=== PATIENT | female | born 1955 | race Caucasian/White ===

== ENCOUNTER → 2017-02-17 | Outpatient (CLI) | payer OTHER ==
--- NOTE | 2017-02-21 10:45 | MM ---
Reason for exam: screening (asymptomatic). Last mammogram was performed 1 year ago. History: Patient is postmenopausal. Family history of breast cancer in mother at age 70 and breast cancer in maternal grandmother at age 50. Benign left US cyst aspiration of the left breast, January 29, 2010. Benign left US cyst aspiration of the left breast, December 27, 2007. Benign left US cyst aspiration of the left breast, June 21, 2007. Took hormonal contraceptives for 3 years beginning at age 23. Physical Findings: A clinical breast exam by your physician is recommended on an annual basis and results should be correlated with mammographic findings. MG Screening Mammo w CAD Bilateral CC and MLO view(s) were taken. Prior study comparison: February 17, 2016, bilateral MG screening mammo w CAD. February 12, 2015, bilateral MG screening mammo w CAD. There are scattered fibroglandular densities. Previous mammotome biopsy in the left breast. No significant changes when compared with prior studies. ASSESSMENT: Benign, BI-RAD 2 RECOMMENDATION: Routine screening mammogram of both breasts in 1 year.
== END | disposition home or self-care (01) ==
LOC: RADMAMWWP 09:25
PROVIDERS: ATTEND Obstetrics & Gynecology
DX: Z12.31 Encounter for screening mammogram for malignant neoplasm of breast (principal); Z80.3 Family history of malignant neoplasm of breast

== ENCOUNTER → 2018-02-23 | Outpatient (CLI) | payer BC ==
--- NOTE | 2018-03-02 11:07 | MM ---
Reason for exam: screening (asymptomatic). Last mammogram was performed 1 year ago. History: Patient is postmenopausal. Family history of breast cancer in mother at age 70 and breast cancer in maternal grandmother at age 50. Benign left US cyst aspiration of the left breast, January 29, 2010. Benign left US cyst aspiration of the left breast, December 27, 2007. Benign left US cyst aspiration of the left breast, June 21, 2007. Took hormonal contraceptives for 3 years beginning at age 23. MG Screening Mammo w CAD Bilateral CC and MLO view(s) were taken. Prior study comparison: February 17, 2017, bilateral MG screening mammo w CAD. February 17, 2016, bilateral MG screening mammo w CAD. February 12, 2015, bilateral MG screening mammo w CAD. The breast tissue is heterogeneously dense. This may lower the sensitivity of mammography. No suspicious abnormality. Left biopsy marker noted. No significant new finding since prior exams. ASSESSMENT: Negative, BI-RAD 1 RECOMMENDATION: Routine screening mammogram of both breasts in 1 year.
== END | disposition home or self-care (01) ==
LOC: RADMAMWWP 10:26
PROVIDERS: ATTEND Obstetrics & Gynecology
DX: Z12.31 Encounter for screening mammogram for malignant neoplasm of breast (principal)
CPT/HCPCS: 77067

== ENCOUNTER → 2019-03-05 | Outpatient (CLI) | payer BC ==
--- NOTE | 2019-03-07 09:10 | MM ---
Reason for exam: screening (asymptomatic). Last mammogram was performed 1 year ago. History: Patient is postmenopausal. Family history of breast cancer in mother at age 70 and breast cancer in maternal grandmother at age 50. Benign left US cyst aspiration of the left breast, January 29, 2010. Benign left US cyst aspiration of the left breast, December 27, 2007. Benign left US cyst aspiration of the left breast, June 21, 2007. Took hormonal contraceptives for 3 years beginning at age 23. Physical Findings: A clinical breast exam by your physician is recommended on an annual basis and results should be correlated with mammographic findings. MG Screening Mammo w CAD Bilateral CC and MLO view(s) were taken. Prior study comparison: February 23, 2018, bilateral MG screening mammo w CAD. February 17, 2017, bilateral MG screening mammo w CAD. There are scattered fibroglandular densities. Previous mammotome biopsy in the left breast. No significant changes when compared with prior studies. ASSESSMENT: Negative, BI-RAD 1 RECOMMENDATION: Routine screening mammogram of both breasts in 1 year.
== END | disposition home or self-care (01) ==
LOC: RADMAMWWP 09:08
PROVIDERS: ATTEND Obstetrics & Gynecology
DX: Z12.31 Encounter for screening mammogram for malignant neoplasm of breast (principal)
CPT/HCPCS: 77067

== ENCOUNTER 2019-05-03 10:05 | Day surgery (SDC) | payer BC ==
[2019-05-01 10:43] VITALS: BMI 30.6
[~2019-05-03 10:05] MED LIST: LACTATED RINGERS 1,000 ML IV SCH
[2019-05-03 10:26] VITALS: RESP 18; TEMP 97.8
[2019-05-03] MEDS ORDERED: LIDOCAINE 1% 20 ML VIAL (10MG/ML) FOR IV START INTRADERMA ONE (10:26)
[2019-05-03] MEDS ORDERED: LACTATED RINGERS 1,000 ML IV ONE (10:26)
[2019-05-03] MEDS ORDERED: MIDAZOLAM 2 MG/2 ML VIAL IVP ONE (10:30)
[2019-05-03] MEDS ORDERED: LIDOCAINE 1% INJ 10MG/ML (20 ML MDV) ONE (11:18)
[2019-05-03] MEDS ORDERED: PROPOFOL 10 MG/ML 20 ML VIAL IV ONE (11:18)
--- NOTE | 2019-05-03 11:30 | P.PCN ---
Date of Procedure: 05/03/19 Procedure(s) Performed: BRIEF HISTORY: Patient is a 63-year-old, pleasant, female, scheduled for an upper endoscopy as a part of evaluation of long-standing history of GERD and atypical chest pain. She is been on Protonix 40 mg daily and heartburn has completely resolved but she still continues to have some discomfort in the epigastric area and in the midsternal area.. PROCEDURE PERFORMED: Esophagogastroduodenoscopy with biopsy. PREOPERATIVE DIAGNOSIS: GERD/atypical chest pain. IV sedation per anesthesia. PROCEDURE: After informed consent was obtained, the patient was brought into the endoscopy unit. IV sedation was administered by Anesthesia under continuous monitoring. Initially the Olympus GIF-140 video endoscope was inserted into the mouth. Esophagus intubated without any difficulty. It was gradually advanced into the stomach and duodenum and carefully examined. The bulb and the second part of the duodenum appeared normal. The scope at this time was withdrawn to the stomach, adequately insufflated with air, and upon careful examination, mucosa of the antrum, had mild gastritis and biopsies were done from this area. The body, cardia and the fundus appeared normal. The scope was then withdrawn into the esophagus. The GE junction was located at 39 cm from the incisors. It was superficial erosions at the GE junction consistent with LA grade B reflux esophagitis. Rest of esophagus appeared normal, biopsies were done from the distal esophagus and the patient tolerated the procedure well. IMPRESSION: 1. 2 superficial erosions at the GE junction consistent with LA grade a\B reflux esophagitis. 2. Minimal antral gastritis. RECOMMENDATIONS: The findings of this examination were discussed with the patient as well his family. She was advised to increase the Protonix to 40 mg twice daily to be taken half hour before breakfast and dinner and follow antireflux measures. She was also advised to follow with the biopsy results.
[2019-05-03 11:52] VITALS: BP 118/81; PULSE 58
== END 2019-05-03 12:14 | disposition home or self-care (01) ==
LOC: ORWHC2ENDO 10:05
PROVIDERS: ATTEND Internal Medicine Gastroenterology
DX: K22.10 Ulcer of esophagus without bleeding (principal); I10 Essential (primary) hypertension; E78.5 Hyperlipidemia, unspecified; F32.9 Major depressive disorder, single episode, unspecified; Z79.891 Long term (current) use of opiate analgesic; Z79.899 Other long term (current) drug therapy; Z88.8 Allergy status to other drugs, medicaments and biological substances
CPT/HCPCS: 88305; 43239; J2250; J2001; J2704

== ENCOUNTER → 2019-06-29 | Outpatient (CLI) | payer BC ==
--- NOTE | 2019-07-02 12:37 | US ---
EXAMINATION TYPE: US liver DATE OF EXAM: 06/29/2019 COMPARISON: Outside MRI report dated May 28, 2019 CLINICAL HISTORY: K76.9,R93.6 LESION LIVER, ABN MRI RESULTS. EXAM MEASUREMENTS: Liver Length: 15.5 cm CBD: 0.6 cm Right Kidney: 9.5 x 4.0 x 4.7 cm Pancreas: Pancreatic tail and uncinate process are obscured by bowel gas. Visualized portions of the pancreas are unremarkable. Liver: In the right hepatic lobe there is a 0.7 x 0.8 x 0.5 cm anechoic cyst with increased through transmission. No additional hepatic lesions are seen. Gallbladder: wnl Evidence for sonographic Pike's sign: No CBD: wnl Right Kidney: wnl IMPRESSION: The liver demonstrates a solitary subcentimeter hepatic cyst that appears simple and debbie gn. Multiple subcentimeter T2 hyperintense lesions were seen on a prior outside lumbar spine MRI date d May 28, 2019. To evaluate for possible other cystic hepatic lesions CT or MR abdomen with cont rast could be considered.
== END | disposition home or self-care (01) ==
LOC: RADUSWWP 09:17
PROVIDERS: ATTEND Family Medicine
DX: K76.89 Other specified diseases of liver (principal)
CPT/HCPCS: 76705

== ENCOUNTER → 2020-05-01 | Outpatient (CLI) | payer BC ==
--- NOTE | 2020-05-01 12:23 | USB ---
Reason for exam: additional evaluation requested from abnormal screening. History: Patient is postmenopausal. Family history of breast cancer in mother at age 70 and breast cancer in maternal grandmother at age 50. Benign left US cyst aspiration of the left breast, January 29, 2010. Benign left US cyst aspiration of the left breast, December 27, 2007. Benign left US cyst aspiration of the left breast, June 21, 2007. Took hormonal contraceptives for 3 years beginning at age 23. Physical Findings: Nurse Summary: thickening right breast 6 o'clock area (nurse TM). US Breast Workup Limited RT Right limited breast ultrasound including focal area of concern, retroareolar and axilla demonstrates no cystic or solid lesion seen. These results were verbally communicated with the patient and result sheet given to the patient on 05/01/20. ASSESSMENT: Incomplete: need additional imaging evaluation, BI-RAD 0 RECOMMENDATION: Special view mammogram of the right breast.
--- NOTE | 2020-05-01 12:26 | MM ---
Reason for exam: additional evaluation requested from abnormal screening. Last mammogram was performed 1 month ago. History: Patient is postmenopausal. Family history of breast cancer in mother at age 70 and breast cancer in maternal grandmother at age 50. Benign left US cyst aspiration of the left breast, January 29, 2010. Benign left US cyst aspiration of the left breast, December 27, 2007. Benign left US cyst aspiration of the left breast, June 21, 2007. Took hormonal contraceptives for 3 years beginning at age 23. MG 3D Work Up W/Cad RT LM and spot compression MLO view(s) were taken of the right breast. Prior study comparison: April 10, 2020, bilateral MG 3d screening mammo w/cad. March 05, 2019, bilateral MG screening mammo w CAD. The breast tissue is heterogeneously dense. This may lower the sensitivity of mammography. Distortion not on compression, on ML. These results were verbally communicated with the patient and result sheet given to the patient on 05/01/20. ASSESSMENT: Probably benign, BI-RAD 3 RECOMMENDATION: Follow-up diagnostic mammogram of the right breast in 6 months. (3D)
== END | disposition home or self-care (01) ==
LOC: RADUSWWP 09:24
PROVIDERS: ATTEND Obstetrics & Gynecology
DX: R92.8 Other abnormal and inconclusive findings on diagnostic imaging of breast (principal)
CPT/HCPCS: 77061; 77065

== ENCOUNTER → 2020-11-20 | Outpatient (CLI) | payer BC ==
--- NOTE | 2020-11-20 13:45 | MM ---
Reason for exam: follow-up at short interval from prior study. Last mammogram was performed 7 months ago. History: Patient is postmenopausal. Family history of breast cancer in mother at age 70 and breast cancer in maternal grandmother at age 50. Benign left US cyst aspiration of the left breast, January 29, 2010. Benign left US cyst aspiration of the left breast, December 27, 2007. Benign left US cyst aspiration of the left breast, June 21, 2007. Took hormonal contraceptives for 3 years beginning at age 23. Physical Findings: Nurse did not find any significant physical abnormalities on exam. MG 3D Diag Mammo W/Cad RT CC and MLO view(s) were taken of the right breast. Prior study comparison: May 01, 2020, right breast MG 3d work up w/cad RT. April 10, 2020, bilateral MG 3d screening mammo w/cad. There are scattered fibroglandular densities. There are benign appearing round calcifications in the right breast. There is no discrete abnormality. These results were verbally communicated with the patient and result sheet given to the patient on 11/20/20. ASSESSMENT: Benign, BI-RAD 2 RECOMMENDATION: Return to routine screening mammogram schedule for both breasts. Back on schedule.
== END | disposition home or self-care (01) ==
LOC: RADMAMWWP 10:45
PROVIDERS: ATTEND Family Medicine
DX: R92.1 Mammographic calcification found on diagnostic imaging of breast (principal); Z78.0 Asymptomatic menopausal state; Z80.3 Family history of malignant neoplasm of breast
CPT/HCPCS: 77061; 77065

== ENCOUNTER → 2021-04-24 | Outpatient (CLI) | payer MEDICARE ==
--- NOTE | 2021-04-28 11:08 | MM ---
Reason for exam: screening (asymptomatic). Last mammogram was performed 5 months ago. History: Patient is postmenopausal. Family history of breast cancer in mother at age 70 and breast cancer in maternal grandmother at age 50. Benign left US cyst aspiration of the left breast, January 29, 2010. Benign left US cyst aspiration of the left breast, December 27, 2007. Benign left US cyst aspiration of the left breast, June 21, 2007. Took hormonal contraceptives for 3 years beginning at age 23. Physical Findings: A clinical breast exam by your physician is recommended on an annual basis and results should be correlated with mammographic findings. MG 3D Screening Mammo W/Cad Bilateral CC and MLO view(s) were taken. Prior study comparison: November 20, 2020, right breast MG 3d diag mammo w/cad RT. April 10, 2020, bilateral MG 3d screening mammo w/cad. March 05, 2019, bilateral MG screening mammo w CAD. There are scattered fibroglandular densities. Previous mammotome biopsy in the left breast. No significant changes when compared with prior studies. ASSESSMENT: Benign, BI-RAD 2 RECOMMENDATION: Routine screening mammogram of both breasts in 1 year.
== END | disposition home or self-care (01) ==
LOC: RADMAMWWP 11:08
PROVIDERS: ATTEND Obstetrics & Gynecology
DX: Z12.31 Encounter for screening mammogram for malignant neoplasm of breast (principal)
CPT/HCPCS: 77063; 77067

== ENCOUNTER → 2022-04-26 | Outpatient (CLI) | payer MEDICARE ==
--- NOTE | 2022-04-27 14:59 | MM ---
Reason for Exam: Screening (asymptomatic). Last screening mammogram was performed 12 month(s) ago. Patient History: Menarche at age 13. First Full-Term at age 25. Postmenopausal. Hormonal Contraceptives for 3 years from age 23 until age 26. 01/29/2010, Benign Cyst Aspiration on the left side. 12/27/2007, Benign Cyst Aspiration on the left side. 06/21/2007, Benign Cyst Aspiration on the left side. Maternal grandmother had breast cancer, age 50. Mother had breast cancer, age 70. Risk Values: Paloma 5 year model risk: 3.2%. NCI Lifetime model risk: 11.7%. Prior Study Comparison: 05/01/2020 Right Diagnostic Mammogram, [facility]. 11/20/2020 Right Diagnostic Mammogram, [facility]. 04/24/2021 Bilateral Screening Mammogram, [facility]. Tissue Density: There are scattered fibroglandular densities. Findings: Analyzed By CAD. There is no suspicious group of microcalcifications or new suspicious mass in either breast. Overall Assessment: Benign, BI-RAD 2 Management: Screening Mammogram of both breasts in 1 year. A clinical breast exam by your physician is recommended on an annual basis and results should be correlated with mammographic findings. Electronically signed and approved by: Riley Miranda M.D. Radiologis
== END | disposition home or self-care (01) ==
LOC: RADMAMWWP 09:54
PROVIDERS: ATTEND Obstetrics & Gynecology
DX: Z12.31 Encounter for screening mammogram for malignant neoplasm of breast (principal); Z80.3 Family history of malignant neoplasm of breast
CPT/HCPCS: 77063; 77067

== ENCOUNTER → 2022-05-27 | Outpatient (CLI) | payer MEDICARE ==
--- NOTE | 2022-05-27 13:47 | US ---
EXAMINATION TYPE: US transvaginal DATE OF EXAM: 05/27/2022 COMPARISON: NONE 01/13/2011. CLINICAL HISTORY: Z80.41 HX OVARIAN CA. Mother had ovarian CA, no symptoms, precautionary, LMP 10 yea rs ago TECHNIQUE: TV. Transvaginal sonographic images Date of LMP: 10 years ago EXAM MEASUREMENTS: Uterus: 5.5 x 3.5 x 2.4 cm Endometrial Stripe: 0.9 cm Right Ovary: not seen Left Ovary: not seen 1. Uterus: Anteverted right fundal calcified fibroid = 1.4 x 1.7cm . Previous anterior fundal fibr oid not clearly identified. 2. Endometrium: 0.6 x 0.9 x 0.8cm endo cyst versus fluid, also hyperechoic area noted within superio r endo that has vascularity and may be a polyp 3. Right Ovary: not seen due to atrophy and or overlying bowel gas 4. Left Ovary: not seen due to atrophy and or overlying bowel gas 5. Bilateral Adnexa: wnl 6. Posterior cul-de-sac: wnl IMPRESSION: 1. Fluid collection within the endometrial canal. A fundal polyp may also be within the superior endo metrial fundus. 2. Suspected calcified fibroid.
--- NOTE | 2022-05-27 14:40 | BD ---
EXAMINATION TYPE: Axial Bone Density DATE OF EXAM: 05/27/2022 COMPARISON: NONE CLINICAL HISTORY: 67 year old Female. ICD-10 CODE: N95.1 POST MENOPAUSAL WITHOUT HRT Height: 62 Weight: 145.1 FRAX RISK QUESTIONS: Alcohol (3 or more units per day): no Family History (Parent hip fracture): no Glucocorticoids (More than 3mos): no (Ex: prednisone, prednisolone, methylprednisolone, dexamethasone, and hydrocortisone). History of Fracture in Adulthood: no Secondary Osteoporosis: 1. Type 1 Diabetes: no 2. Hyperthyroidism: no 3. Menopause before 45: no 4. Malnutrition: no 5. Chronic liver disease: no Rheumatoid Arthritis: no Current Tobacco Use: no RISK FACTORS HISTORY OF: Surgery to Spine/Hip(right/left)/Wrist (right/left): no Family History of Osteoporosis: yes Active: no Diet low in dairy products/other sources of calcium: yes Postmenopausal woman: yes Lost more than 2 inches in height since high school: no MEDICATIONS: Additional History: EXAM MEASUREMENTS: Bone mineral densitometry was performed using the [employer] System. Bone mineral density as measured about the Lumbar spine is: ----- L1-L4(G/cm2): 1.177 T Score Values are as follows: ----- L1: 1.4 ----- L2: 0.3 ----- L3: -0.5 ----- L4: -1.3 ----- L1-L4: 0.0 Bone mineral density : baseline Bone mineral density about the R hip (g/cm2): 0.828 Bone mineral density about the L hip (g/cm2): 0.876 T Score values are as follows: -----R Neck: -1.5 -----L Neck: -1.2 -----R Total: -2.0 -----L Total: -1.7 Bone mineral density : baseline FRAX%s: The graph provided illustrates a 9.1% chance for a major osteoporotic fx and a 1.0% chance fo r the hips probability for fx in 10 years time. IMPRESSION: Osteopenia (T Score between -2.5 and -1). There is slightly increased risk of fracture and the patient may be considered for treatment. Re-Screen 2-5 years. NOTE: T-SCORE=SD OF THE YOUNG ADULT MEAN.
== END | disposition home or self-care (01) ==
LOC: RADUSWWP 11:49
PROVIDERS: ATTEND Obstetrics & Gynecology
DX: N95.1 Menopausal and female climacteric states (principal); M85.89 Other specified disorders of bone density and structure, multiple sites; Z80.41 Family history of malignant neoplasm of ovary
CPT/HCPCS: 76830; 77080; 86304

== ENCOUNTER → 2023-03-30 | Outpatient (CLI) | payer MEDICARE ==
--- NOTE | 2023-03-30 12:22 | XR ---
EXAMINATION TYPE: XR ribs LT DATE OF EXAM: 03/30/2023 COMPARISON: NONE HISTORY: Pain TECHNIQUE: 4 views FINDINGS: There is AC joint arthropathy and diffuse osteopenia. There are mildly displaced fractures involving the posterior lateral left sixth, seventh and eighth ribs. There is no evidence of pneumothorax. There is left lower lobe atelectasis and small effusion. IMPRESSION: 1. Small left pleural effusion with multiple displaced posterior lateral left rib fractures. A [place] level critical message alert has been initiated for Danna Barrera MD via the [employer] Critical Results System on 03/30/2023 12:19 PM. This message alert has been sent to Danna Rodriguez MD via the preferences provided by the clinician for the receipt of Radiology Critical Findings . Message ID [id number].
--- NOTE | 2023-03-30 12:23 | XR ---
EXAMINATION TYPE: XR chest 2V DATE OF EXAM: 03/30/2023 COMPARISON: NONE TECHNIQUE: PA and lateral views submitted. HISTORY: Pain FINDINGS: There is a small left pleural effusion and basilar subsegmental atelectasis. Right lung clear. No siz able pneumothorax. Diffuse osteopenia and AC joint. Posterolateral left seventh, sixth and eighth rib fractures concordant with the rib series. IMPRESSION: 1. Small left pleural effusion and suspected basilar atelectasis. Rib series demonstrated multiple le ft posterior lateral mildly displaced acute rib fractures.
== END | disposition home or self-care (01) ==
LOC: RADXRMAIN 10:49
PROVIDERS: ATTEND Family Medicine
DX: S22.42XA Multiple fractures of ribs, left side, initial encounter for closed fracture (principal); W18.00XA Striking against unspecified object with subsequent fall, initial encounter; J90 Pleural effusion, not elsewhere classified
CPT/HCPCS: 71046

== ENCOUNTER → 2023-04-27 | Outpatient (CLI) | payer MEDICARE ==
--- NOTE | 2023-04-27 12:06 | XR ---
EXAMINATION TYPE: XR chest 2V DATE OF EXAM: 04/27/2023 COMPARISON: 04/11/2023 TECHNIQUE: PA and lateral views submitted. HISTORY: Left-sided rib pain FINDINGS: The lungs are clear and there is no pneumothorax, pleural effusion, or focal pneumonia. Heart size normal and no overt failure. Osseous structures demonstrate hypertrophic and degenerative changes of the spine. Biapical pleural thickening. Hyperinflation suggests COPD. There are rib deformities invol ving the lateral left rib cage. IMPRESSION: 1. No acute process. Hyperinflation suggests COPD. 2. Acute and subacute multiple left-sided rib fractures involving left sixth, seventh, and eighth rib s.
--- NOTE | 2023-04-27 12:08 | XR ---
EXAMINATION TYPE: XR ribs LT DATE OF EXAM: 04/27/2023 COMPARISON: NONE HISTORY: Pain TECHNIQUE: 5 views submitted FINDINGS: Diffuse osteopenia with AC joint arthropathy. Calcific tendinosis of the rotator cuff. Ther e is deformities involving the lateral axis, seventh and eighth ribs. IMPRESSION: 1. Findings suggest acute to subacute fractures involving the left fifth sixth and seventh ribs. 2. Correlate for calcific tendinosis of the rotator cuff.
== END | disposition home or self-care (01) ==
LOC: RADXRMAIN 10:33
PROVIDERS: ATTEND Family Medicine
DX: J91.8 Pleural effusion in other conditions classified elsewhere (principal); S22.42XA Multiple fractures of ribs, left side, initial encounter for closed fracture; J44.9 Chronic obstructive pulmonary disease, unspecified; R07.82 Intercostal pain; W01.198A Fall on same level from slipping, tripping and stumbling with subsequent striking against other object, initial encounter
CPT/HCPCS: 71046

== ENCOUNTER → 2023-04-27 | Outpatient (CLI) | payer MEDICARE ==
--- NOTE | 2023-04-28 10:59 | MM ---
Reason for Exam: Screening (asymptomatic). Last screening mammogram was performed 12 month(s) ago. Patient History: Menarche at age 13. First Full-Term at age 25. Postmenopausal. Hormonal Contraceptives for 3 years from age 23 until age 26. 01/29/2010, Benign Cyst Aspiration on the left side. 12/27/2007, Benign Cyst Aspiration on the left side. 06/21/2007, Benign Cyst Aspiration on the left side. Maternal grandmother had breast cancer, age 50. Mother had breast cancer, age 70. Risk Values: Paloma 5 year model risk: 3.2%. NCI Lifetime model risk: 11.3%. Prior Study Comparison: 11/20/2020 Right Diagnostic Mammogram, [facility]. 04/24/2021 Bilateral Screening Mammogram, [facility]. 04/26/2022 Bilateral MG 3D screening mammo w/cad, [facility]. Tissue Density: The breast tissue is heterogeneously dense. This may lower the sensitivity of mammography. Findings: Analyzed By CAD. There is no suspicious group of microcalcifications or new suspicious mass in either breast. Overall Assessment: Benign, BI-RAD 2 Management: Screening Mammogram of both breasts in 1 year. . Patient should continue monthly self-breast exams. A clinical breast exam by your physician is recommended on an annual basis. This exam should not preclude additional follow-up of suspicious palpable abnormalities. Note on Paloma scores and lifetime risk: 1. A Paloma score greater than 3% is considered moderate risk. If this is the case, consider specialist referral to assess eligibility for a risk reducing agent. 2. If overall lifetime risk for the development of breast cancer is 20% or higher, the patient may qualify for future screening with alternating mammogram and breast MRI. Electronically signed and approved by: Taiow Cui M.D. Radiologis
== END | disposition home or self-care (01) ==
LOC: RADMAMWWP 09:46
PROVIDERS: ATTEND Obstetrics & Gynecology
DX: Z12.31 Encounter for screening mammogram for malignant neoplasm of breast (principal); Z78.0 Asymptomatic menopausal state; Z80.3 Family history of malignant neoplasm of breast
CPT/HCPCS: 77063; 77067

== ENCOUNTER 2023-05-18 07:06 | Day surgery (SDC) | payer MEDICARE ==
[2023-04-19 09:50] VITALS: BMI 26.6
[2023-05-18] MEDS ORDERED: LACTATED RINGERS 1,000 ML IV SCH (07:19)
[2023-05-18] MEDS ORDERED: LIDOCAINE 1% (10MG/ML) FOR IV START INTRADERMA PRN (07:19)
[2023-05-18 07:54] VITALS: TEMP 97.5
[2023-05-18] MEDS ORDERED: LIDOCAINE 2% (PF) 20 MG/ML 5 ML VIAL ONE (08:12)
[2023-05-18] MEDS ORDERED: PROPOFOL 10 MG/ML 20 ML VIAL IV ONE (08:12)
--- NOTE | 2023-05-18 08:35 | P.PCN ---
Date of Procedure: 05/18/23 Procedure(s) Performed: Brief history: Patient is a pleasant 68-year-old pleasant white female scheduled for an elective upper endoscopy as well as colonoscopy as a part of evaluation of GERD and prior history of colon polyps. Last colonoscopy was 7 years ago. Procedure performed: Esophagogastroduodenoscopy Colonoscopy Preoperative diagnosis: [place] [facility] [place] After informed consent was obtained from the patient was brought into the endoscopy unit and IV sedation was administered by anesthesia under continuous monitoring. Initially upper endoscopy was done. The Olympus GF 160 video endoscope was inserted inserted into the mouth and esophagus intubated without any difficulty and was gradually advanced into the stomach and duodenum and carefully examined. The bulb and second part of the duodenum appeared normal. The scope was then withdrawn into the stomach adequately insufflated with air and upon careful examination the antrum and body, cardia and fundus appeared normal. The scope was then withdrawn into the esophagus. The GE junction was located at 40 cm to the incisors. It appeared regular with one superficial erosion consistent with LA grade a reflux esophagitis.. Rest of the esophagus appeared normal. Patient tolerated the procedure well. At this time the patient continued to remain sedation. Initial digital rectal examination was normal. Olympus CF 160 video colonoscope was then inserted into the rectum and gradually advanced to the cecum without any difficulty. Careful examination was performed as the scope was gradually being withdrawn. The prep was excellent. The cecum, ascending colon, transverse colon, descending colon, sigmoid colon and rectum appeared normal. Retroflexion was performed in the rectum and no lesions were noted. Patient tolerated the procedure well. Impression: 1. Upper endoscopy revealed one superficial erosion at the GE junction consistent with LA grade A reflux esophagitis 2. Colonoscopy revealed scattered sigmoid diverticulosis but no evidence of colorectal neoplasia. Recommendations: Findings of this examination were discussed with the patient as well as her family. She was advised to change the Protonix to 40 mg daily half hour before dinner and follow antireflux measures. Recommend repeat screening colonoscopy in 10 years.
[2023-05-18 09:17] VITALS: BP 121/82; PULSE 58; RESP 17
== END 2023-05-18 09:15 | disposition home or self-care (01) ==
LOC: ORWHC2ENDO 07:06
PROVIDERS: ATTEND Internal Medicine Gastroenterology
DX: Z12.11 Encounter for screening for malignant neoplasm of colon (principal); K21.00 Gastro-esophageal reflux disease with esophagitis, without bleeding; K57.30 Diverticulosis of large intestine without perforation or abscess without bleeding; I10 Essential (primary) hypertension; E78.5 Hyperlipidemia, unspecified; M19.90 Unspecified osteoarthritis, unspecified site; G43.909 Migraine, unspecified, not intractable, without status migrainosus; Z79.1 Long term (current) use of non-steroidal anti-inflammatories (NSAID); Z86.010 Personal history of colon polyps; Z79.899 Other long term (current) drug therapy; Z98.890 Other specified postprocedural states; Z91.018 Allergy to other foods; Z91.014 Allergy to mammalian meats
CPT/HCPCS: 43235; J2704; J2001; G0105

== ENCOUNTER → 2023-05-19 | Outpatient (CLI) | payer MEDICARE ==
--- NOTE | 2023-05-19 14:05 | XR ---
EXAMINATION TYPE: XR chest 2V DATE OF EXAM: 05/19/2023 COMPARISON: 04/27/2023 TECHNIQUE: PA and lateral views submitted. HISTORY: Pain FINDINGS: The lungs are clear and there is no pneumothorax, pleural effusion, or focal pneumonia. Heart size normal and no overt failure. Osseous structures demonstrate hypertrophic and degenerative changes of the spine. Biapical pleural thickening. There are fractures involving the posterior-lateral left fift h, sixth, seventh and eighth ribs. Underlying emphysematous changes. IMPRESSION: 1. Mildly displaced fractures left fifth, sixth, seventh and eighth ribs posterolaterally.
--- NOTE | 2023-05-19 14:07 | XR ---
EXAMINATION TYPE: XR ribs LT DATE OF EXAM: 05/19/2023 COMPARISON: NONE HISTORY: Pain TECHNIQUE: 4 views submitted FINDINGS: There are fractures involving the posterior-lateral left fifth, sixth, seventh and eighth r ibs. No sizable pneumothorax. Mild AC joint arthropathy. Hypertrophic and degenerative changes of the spine. IMPRESSION: There are fractures involving the posterior-lateral left fifth, sixth, seventh and eighth ribs.
== END | disposition home or self-care (01) ==
LOC: RADXRMAIN 13:09
PROVIDERS: ATTEND Family Medicine
DX: S22.42XA Multiple fractures of ribs, left side, initial encounter for closed fracture (principal); J91.8 Pleural effusion in other conditions classified elsewhere; R07.82 Intercostal pain; W01.198A Fall on same level from slipping, tripping and stumbling with subsequent striking against other object, initial encounter
CPT/HCPCS: 71046

== ENCOUNTER → 2023-05-24 | Outpatient (CLI) | payer MEDICARE ==
--- NOTE | 2023-05-24 11:04 | CT ---
EXAMINATION TYPE: CT chest wo con DATE OF EXAM: 05/24/2023 COMPARISON: None HISTORY: multiple left side rib fxs x [address] DLP: 190.90 mGycm. Automated Exposure Control for Dose Reduction was Utilized. TECHNIQUE: CT scan of the thorax is performed without IV contrast. FINDINGS: LUNGS: The lungs are grossly clear, there is no concerning parenchymal mass or nodule identified. T here is no pleural effusion or pneumothorax seen. The tracheobronchial tree is patent. There is a 3 mm subpleural micronodule image 47 series 4 left lower lobe. MEDIASTINUM: Lack of IV contrast is noted to limit evaluation for mediastinal and especially hilar ad enopathy. There are no definitive greater than 1 cm hilar or mediastinal lymph nodes. No cardiomega ly or pericardial effusion is seen. Aorta of normal caliber with calcification involving the aortic v alve. Mild atherosclerotic change of the aorta. OTHER: There are healing fractures of the left fifth, sixth, seventh, eighth ribs. Small amount of ca llus formation is seen with persistent fracture lines. There is asymmetric size of the right thyroid lobe.. Multilevel hypertrophic and degenerative change of the spine. Punctate upper pole left renal calculus. Hypodensities within the dome of the liver too small to moody acterize. Hiatal hernia. IMPRESSION: 1. Healing left lateral rib fractures 5 through 8. 2. No acute intrathoracic process. There is a 3 mm subpleural micronodule left lower lobe. 12 month follow-up low dose screening CT recommended.
== END | disposition home or self-care (01) ==
LOC: RADCTMAIN 09:10
PROVIDERS: ATTEND Family Medicine
DX: S22.42XG Multiple fractures of ribs, left side, subsequent encounter for fracture with delayed healing (principal); R91.1 Solitary pulmonary nodule
CPT/HCPCS: 71250

== ENCOUNTER → 2023-05-30 | Outpatient (CLI) | payer MEDICARE ==
--- NOTE | 2023-05-30 09:50 | US ---
EXAMINATION TYPE: US transvaginal DATE OF EXAM: 05/30/2023 COMPARISON: 2021 CLINICAL INDICATION: Female, 68 years old with history of D25.9 LEIOMYOMA OF UTERUS, UNSPECIFIED; TECHNIQUE: Transvaginal (TV Transvaginal sonographic images were medically necessary to better asse ss the following anatomy: Date of LMP: 11 years ago EXAM MEASUREMENTS: Uterus: 6.4 x 2.4 x 4.0 cm Endometrial Stripe: 0.82 cm Right Ovary: 1.2 x 0.9 x 0.9 cm Left Ovary: 0.9 x 0.8 x 0.8 cm 1. Uterus: Anteverted Possible fibroids; largest appears calcified within the right fundus measuring 2.0 x 1.6 x 1.9 cm; left fundal measuring 1.2 x 1.1 x 1.1 cm 2. Endometrium: Complex endometrium 3. Right Ovary: wnl 4. Left Ovary: wnl 5. Bilateral Adnexa: wnl 6. Posterior cul-de-sac: wnl IMPRESSION: 1. Leiomyomatous change of the uterus. 2. Thickened and complex endometrium. Direct visualization is recommended
== END | disposition home or self-care (01) ==
LOC: RADUSWWP 09:09
PROVIDERS: ATTEND Obstetrics & Gynecology
DX: D25.9 Leiomyoma of uterus, unspecified (principal)
CPT/HCPCS: 76830; 86304

== ENCOUNTER → 2023-06-24 | Outpatient (CLI) | payer MEDICARE ==
[2023-06-24 18:22] LABS: Basophils # (A) 0.02 X 10*3/uL (0.00-0.10); Basophils % (A) 0.3 %; Eosinophils # (A) 0.05 X 10*3/uL (0.04-0.35); Eosinophils % (A) 0.7 %; HCT 39.5 % (37.2-46.3); HGB 13.4 g/dL (12.0-15.0); Lymphocytes # (A) 1.22 X 10*3/uL (0.90-5.00); Lymphocytes % (A) 16.2 %; MCH 30.1 pg (27.0-32.0); MCHC 33.9 g/dL (32.0-37.0); MCV 88.8 FL (80.0-97.0); Mean Platelet Volume 10.7 FL (9.5-12.2); Monocytes # (A) 0.34 X 10*3/uL (0.20-1.00); Monocytes % (A) 4.5 %; NRBC Per 100 WBC 0 X 10*3/uL (0.00-0.01); Neutrophils % (A) 78.2 %; Platelet Count 274 X 10*3/uL (140-440); RBC 4.45 X 10*6/uL (4.10-5.20); RDW 13.3 % (11.5-14.5); WBC 7.54 X 10*3/uL (4.50-10.00)
== END | disposition home or self-care (01) ==
LOC: LABPAT 10:10
PROVIDERS: ATTEND Obstetrics & Gynecology
DX: Z01.818 Encounter for other preprocedural examination (principal); R00.1 Bradycardia, unspecified
CPT/HCPCS: 36415; 85025; 93005

== ENCOUNTER → 2023-07-04 | Day surgery (SDC) | payer MEDICARE ==
--- NOTE | 2023-06-30 12:36 | P.HPOB ---
History of Present Illness H&P Date: 06/30/23 Chief Complaint: Abnormal thickening of the endometrium This patient is a pleasant 68-year-old 2 para 2 female who was having a routine ultrasound done for ovarian cancer screening secondary to a family medical history of ovarian cancer and was found to have abnormal endometrial thickening on ultrasound. Patient's ovaries were normal and CA-125 was normal. The endometrium was 8 mm and complex and the radiologist recommended direct visualization and sampling. Patient now presents for hysteroscopy D&C for this. Patient is not having any bleeding or pain. Past Medical History Past Medical History: GERD/Reflux, Hyperlipidemia, Hypertension, Osteoarthritis (OA) Additional Past Medical History / Comment(s): chronic left hip and back pain,degenerative and ruptured discs,scoliosis,HX MIGRAINE, LE EDEMA History of Any Multi-Drug Resistant Organisms: None Reported Past Surgical History: Orthopedic Surgery Additional Past Surgical History / Comment(s): KNEE ARTHROSCOPY, EPIDURALS FOR BACK PAIN Past Anesthesia/Blood Transfusion Reactions: No Reported Reaction Smoking Status: Never smoker Past Alcohol Use History: None Reported Past Drug Use History: None Reported - Past Family History Mother Family Medical History: Cancer Additional Family Medical History / Comment(s): ovarian,breast CA Father Family Medical History: Cancer Additional Family Medical History / Comment(s): testicular CA Medications and Allergies Home Medications Medication Instructions Recorded Confirmed Type Atorvastatin [Lipitor] 20 mg PO MOFR 08/19/15 06/29/23 History Citalopram Hydrobromide [CeleXA] 20 mg PO QAM 08/19/15 06/29/23 History Ascorbic Acid [Vitamin C] 500 - 1,000 mg PO QAM 05/01/19 06/29/23 History Cetirizine HCl [Zyrtec] 20 mg PO QAM 05/01/19 06/29/23 History Cholecalciferol (Vitamin D3) 5,000 unit PO QAM 05/01/19 06/29/23 History [Vitamin D3] Fish Oil/Dha/Epa [Fish Oil 1,200 1 each PO QAM 05/01/19 06/29/23 History mg Fish Oil] Gabapentin [Neurontin] 300 mg PO HS 05/01/19 06/29/23 History HYDROcodone/APAP 7.5-325MG [[place] 1 - 2 tab PO DAILY PRN 05/01/19 06/29/23 History 7.5-325] SUMAtriptan succinate [Imitrex] 25 mg PO DAILY PRN 05/01/19 06/29/23 History Spironolactone 50 mg PO QAM 05/01/19 06/29/23 History Cyanocobalamin (Vitamin B-12) 5,000 mcg PO QAM 04/18/23 06/29/23 History [Vitamin B-12] Nf-Biotin 1,000 mcg PO QAM 04/18/23 06/29/23 History Pantoprazole Sodium [Protonix] 20 mg PO QAM 04/18/23 06/29/23 History atenoloL 25 mg PO QAM 04/18/23 06/29/23 History Allergies Allergy/AdvReac Type Severity Reaction Status Date / Time banana Allergy Unknown Verified 06/29/23 14:28 casein Allergy GI Verified 06/29/23 14:28 discomfort red meat Allergy GI Uncoded 06/29/23 14:28 discomfort Exam - OBG Physical Exam Abdomen: bowel sounds normal, no diffuse tenderness, no bruit present, no guarding noted, no hepatomegaly, no splenomegaly, no mass Vulva: both: normal Vagina: atrophic mucosa Cervix: no lesion, no discharge Uterus: normal size Results Ultrasound as above Assessment and Plan Assessment: This is a pleasant 68-year-old 2 para 2 female who has abnormal endometrial thickening on screening ultrasound. Plan is hysteroscopy and dilation and curettage. Patient understands this surgery and risks and risks of infection, bleeding, possible uterine perforation. All the patient's questions are answered and a written consent is obtained. (1) Endometrial thickening on ultrasound Status: Acute Code(s): R93.89 - ABNORMAL FINDINGS ON DX IMAGING OF OTH BODY STRUCTURES SNOMED Code(s): 414360225
[~2023-07-04] MED LIST changes: +DEXAMETHASONE SOD PHOSPHATE 4 MG/ML 1 ML VIAL IV ONE; +LIDOCAINE 1% (10MG/ML) FOR IV START INTRADERMA PRN; +LIDOCAINE 1% INJ 10MG/ML (20 ML MDV) ONE; +MIDAZOLAM 2 MG/2 ML VIAL IV PRN; +MIDAZOLAM 2 MG/2 ML VIAL ONE; +ONDANSETRON 4 MG/2 ML VIAL IVP ONE; +PROPOFOL 10 MG/ML 20 ML VIAL IV ONE; +Pre Op ABX Message 1 EACH MISC MISCELLANE ONE; +SUCCINYLCHOLINE CHLORIDE 200 MG/10 ML VIAL IV ONE; +fentaNYL (PF) 50 MCG/ML 2 ML AMP IV PRN; +fentaNYL (PF) 50 MCG/ML 2 ML AMP ONE
--- NOTE | 2023-07-04 07:25 | P.OP ---
Date of Procedure: 07/04/23 Preoperative Diagnosis: Abnormal endometrial thickening on ultrasound Postoperative Diagnosis: Same, large endometrial polyp Procedure(s) Performed: #1: Hysteroscopy. #2: Polypectomy. 3: Dilation and curettage Anesthesia: ANURAG Surgeon: Jose Alejandro Duffy Estimated Blood Loss (ml): 10 Urine output (ml): 15 Pathology: other (Endometrial polyp and uterine curettings) Condition: stable Disposition: PACU Indications for Procedure: Please see dictated H&P for intimate details of this patient's admission. In brief summary this is a pleasant 68-year-old female who is having a surveillance ultrasound for family history of ovarian cancer and was noted to have abnormal endometrial thickening on transvaginal ultrasound. Patient I discussed further evaluation and now plan to proceed with hysteroscopy and D&C. Patient does understand the surgery and risks and risks of infection, bleeding, possible uterine perforation. All the patient's questions are answered and a written consent is obtained. Operative Findings: This patient had a approximately 2-3 cm pedunculated polyp of the endometrium. The endometrial cavity appeared atrophic without other lesions. Description of Procedure: This patient is taken to the operating room where she is laid in the supine position. She subsequently undergoes general endotracheal anesthesia without incident. With an adequate level of anesthesia she is placed in the dorsal lithotomy position. She has a vaginal perineal prep and drape. Examination under anesthesia shows a mid position uterus that small. I placed a weighted speculum the posterior vagina. The bladder is drained for 15 mL of clear urine. Allis clamp was then placed on the anterior lip of the cervix. The uterus is gently sounded to 7 cm. Serial dilation is then done to allow the hysteroscope easily and the uterine cavity. Using saline solution hysteroscopy is performed and is noted that there is a large endometrial polyp proximally 2-3 cm in dimensions. Rest of the endometrial cavity appears quite atrophic without lesions. With this done the hysteroscope was removed. Cervix is dilated more to allow a polyp forceps easily and uterine cavity and using the polyp forceps I'm able to grasp the polyp and remove it intact. With this completed the cervix is dilated slightly more and a gentle but thorough 4 quadrant curettage is done for scant tissue consistent with atrophy. Adequate sampling is done. The procedure is then ended. The Allis clamp and weighted speculum were removed. All counts are correct 3. Patient is awakened from anesthesia taken to the recovery room in satisfactory condition. There are no complications.
[2023-07-04] MEDS: HYDROmorphone 0.5 MG/0.5 ML SYRINGE IVP PRN ×2 (07:31→07:44)
[2023-07-04 08:03] VITALS: TEMP 97.2
[2023-07-04 09:18] VITALS: BP 105/68; PULSE 58; RESP 16
== END | disposition home or self-care (01) ==
LOC: OR 05:32
PROVIDERS: ATTEND Obstetrics & Gynecology
DX: N84.0 Polyp of corpus uteri (principal); I10 Essential (primary) hypertension; E78.5 Hyperlipidemia, unspecified; K21.9 Gastro-esophageal reflux disease without esophagitis; M19.90 Unspecified osteoarthritis, unspecified site; Z98.890 Other specified postprocedural states; Z80.3 Family history of malignant neoplasm of breast; Z79.899 Other long term (current) drug therapy; Z80.41 Family history of malignant neoplasm of ovary; Z91.014 Allergy to mammalian meats; Z91.018 Allergy to other foods
CPT/HCPCS: 58558; 88305; J2250; J0330; J1100; J2405; J2001; J3010; J2704; J1170

== ENCOUNTER → 2024-05-29 | Outpatient (CLI) | payer MEDICARE ==
--- NOTE | 2024-06-04 14:13 | MM ---
Reason for Exam: Screening (asymptomatic). Last mammogram was performed 1 year(s) and 1 month(s) ago. Patient History: Menarche at age 13. First Full-Term at age 25. Postmenopausal. Hormonal Contraceptives for 3 years from age 23 until age 26. 01/29/2010, Benign Cyst Aspiration on the left side. 12/27/2007, Benign Cyst Aspiration on the left side. 06/21/2007, Benign Cyst Aspiration on the left side. Maternal grandmother had breast cancer, age 50. Mother had breast cancer, age 70. Risk Values: Paloma 5 year model risk: 3.3%. NCI Lifetime model risk: 10.4%. Prior Study Comparison: 04/24/2021 Bilateral Screening Mammogram, [facility]. 04/26/2022 Bilateral MG 3D screening mammo w/cad, [facility]. 04/27/2023 Bilateral MG 3D screening mammo w/cad, [facility]. Tissue Density: There are scattered areas of fibroglandular density. Findings: Analyzed By CAD. Left breast biopsy clip. Right breast: There is no suspicious group of microcalcifications or new suspicious mass. Left breast: There is no suspicious group of microcalcifications or new suspicious mass. Overall Assessment: Negative, BI-RAD 1 Management: Screening Mammogram of both breasts in [address] [facility] will attempt to contact patient to return for supplemental views and ultrasound if indicated. Patient should continue monthly self-breast exams. A clinical breast exam by your physician is recommended on an annual basis. This exam should not preclude additional follow-up of suspicious palpable abnormalities. Note on Paloma scores and lifetime risk: 1. A Paloma score greater than 3% is considered moderate risk. If this is the case, consider specialist referral to assess eligibility for a risk reducing agent. 2. If overall lifetime risk for the development of breast cancer is 20% or higher, the patient may qualify for future screening with alternating mammogram and breast MRI. [facility], , 06/04/2024 2:10 PM. Electronically signed and approved by: Adalberto Gallego DO
== END | disposition home or self-care (01) ==
LOC: RADMAMWWP 10:03
PROVIDERS: ATTEND Family Medicine
DX: Z12.31 Encounter for screening mammogram for malignant neoplasm of breast (principal); R92.323 Mammographic fibroglandular density, bilateral breasts; Z78.0 Asymptomatic menopausal state; Z80.3 Family history of malignant neoplasm of breast
CPT/HCPCS: 77063; 77067

== ENCOUNTER → 2024-08-13 | Outpatient (CLI) | payer MEDICARE ==
--- NOTE | 2024-08-13 16:25 | CT ---
EXAMINATION TYPE: CT chest wo con DATE OF EXAM: 08/13/2024 3:09 PM COMPARISON: 05/24/2023 CLINICAL INDICATION: Female, 69 years old with history of R91.8 LUNG NODULES, f/u nodule TECHNIQUE: Axial images were obtained at 5 mm thick sections. Reconstructed images are reviewed on [employer] computer in the coronal plane. Contrast used: mL of , (none if empty) Oral contrast used: (none if empty) CT DLP: 204.4 mGycm, Automated exposure control for dose reduction was used. FINDINGS: Portion of the thyroid visualized is normal. There is a 0.5 cm density within the peripheral right lung. Series 4 image 35. There is a stable 0.4 cm peripheral posterior lateral left lung base nodule. Series 4 image 45 No enlarged mediastinal or hilar adenopathy is evident. The ascending aorta diameter at the level o f the main pulmonary artery is 3.2 cm. The main pulmonary artery diameter at the bifurcation is 2.[address] sections are obtained through the upper abdomen. Abdomen is essentially unremarkable. IMPRESSION: 1. Tiny density within the periphery of the bilateral lungs best above. Follow-up exam in one year re commended. [facility], , 08/13/2024 4:22 PM
== END | disposition home or self-care (01) ==
LOC: RADCTMAIN 14:44
PROVIDERS: ATTEND Family Medicine
DX: R91.8 Other nonspecific abnormal finding of lung field (principal)
CPT/HCPCS: 71250